=== PATIENT | female | born 1975 | race Asian ===

== ENCOUNTER 2017-03-16 08:45 | Emergency (ER) | payer OTHER ==
[2017-03-16 08:55] VITALS: BP 127/88; PULSE 69; TEMP 97.8; BMI 20.9
--- NOTE | 2017-03-16 09:04 | PDOC ---
Post Exposure HPI - General Chief Complaint: Blood/Body Fluid Exposure SJR Stated Complaint: EMPLOYEE, EYE PROBLEM Time Seen by Provider: 03/16/17 08:53 History Source: Patient Exam Limitations: No Limitations - History of Present Illness Initial Comments: 03/16/17 08:56 CHIEF COMPLAINT: Blood and body fluid exposure HISTORY OF PRESENT ILLNESS: Patient is a 41-year-old female, employee of [employer] presents emergency department for evaluation after being splashed in the eye with PEG tube drainage. 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 Source Patient: Josias# [id number] Source patient tested for hepatitis and 2012, alexa de jesus CP. Will call attending to test for hepatitis and HIV, no HIV test noted on record. 03/16/17 09:12 Timing: just prior to arrival Past History - Past Medical History Allergies/Adverse Reactions: Allergies No Known Allergies Allergy (Verified 03/16/17 08:47) Home Medications: Ambulatory Orders NK [No Known Home Medication] 03/16/17 General: Yes: no pertinent history - Immunization History Tetanus Status: Unknown - Social History Smoking Status: Never smoked Review of Systems - Review of Systems Constitutional: No: Symptoms Reported HEENTM: No: Symptoms Reported, Eye Pain, Blurred Vision, Tearing All Other Systems: Reviewed and Negative *Physical Exam - Vital Signs Last Vital Signs Temp Pulse Resp BP Pulse Ox 97.8 F 69 18 127/88 100 03/16/17 08:49 03/16/17 08:49 03/16/17 08:49 03/16/17 08:49 03/16/17 08:49 - Physical Exam General Appearance: Yes: Appropriately Dressed. No: Apparent Distress HEENT: positive: OUMAR, Normal ENT Inspection Respiratory/Chest: positive: Lungs Clear Lymphatic: negative: Adenopathy Integumentary: positive: Normal Color, Other (no open areas) Neurologic: positive: Alert Post Exposure - ED Protocol - Exposure Treatment Washing/Decontamination: Saline Source Patient HIV Status:: Unknown Is PEP indicated?: Yes Prophylaxis for HIV discussed?: Yes Prophylaxis given?: No Prophylaxis refused?: Yes Drug(s) Information Sheets given:: Yes Baseline bloods drawn prophylaxis:(use *Exposure-Hosp Emp): Yes Additional Treatment:: DT - Referrals Employee Referred to Employee Health:: Yes Employee Referred to Infectious Disease Specialist:: Jhony Dunn Medical Decision Making - Medical Decision Making 03/16/17 09:35 A/P: Patient post exposure, low risk exposure mainly tube feeding, source patient will be tested for hepatitis and HIV as per and RN covering for patient. Patient is now refusing HIV prophylaxis, medications discussed with patient, she continues to refuse. Will follow-up with [facility] for source patient testing. Tetanus given Will follow up with occupational medicine 03/16/17 09:42 *DC/Admit/Observation/Transfer Diagnosis at time of Disposition: Exposure to blood or body fluid - Discharge Dispostion Disposition: HOME Condition at time of disposition: Good Admit: No - Referrals Referrals: Jhony Dunn MD [Staff Physician] - - Patient Instructions Printed Discharge Instructions: How to Handle Body Fluid Exposure -- Healthcare Worker Additional Instructions: Please follow up with testing if source patient. Please follow up with employee health on Friday. Source J #[id number]. Your tetanus now up to date please notify employee health - Post Discharge Activity Work/School Note: Back to Work
[2017-03-16 09:41] LABS: EOSINOPHIL 0.5 % (0-4.5); MCH 28.1 pg (25.7-33.7); MCHC 32.8 g/dl (32.0-36.0); MEAN CELL VOLUME 85.8 fl (80-96); MEAN PLT VOLUME 7.8 fl (7.5-11.1); NEUTROPHILS 65.9 % (42.8-82.8); PLATELET COUNT 249 K/MM3 (134-434); RDW 15.7 % (11.6-15.6)
[2017-03-16] MEDS ORDERED: DIPHTH,PERTUSS(ACELL),TET 0.5 ML DISP.SYRIN IM ONE (09:41)
[2017-03-16] MEDS: TETANUS AND DIPHTHERIA TOXOID 0.5 ML DISP.SYRIN IM ONE ×2 (09:45→09:47)
[2017-03-16 10:01] LABS: ALBUMIN 4.6 g/dl (3.4-5.0); ANION GAP 7 (8-16); BILIRUBIN,TOTAL 0.6 mg/dL (0.2-1.0); CALCIUM 9.5 mg/dL (8.5-10.1); CHOLESTEROL 197 mg/dL (50-200); CO2 28 mmol/L (21-32); CREATININE 0.7 mg/dL (0.55-1.02); GLUCOSE,RANDOM 95 mg/dL (74-106); LDH 180 U/L (84-246); PHOSPHOROUS 3.7 mg/dL (2.5-4.9); SGOT/AST 16 U/L (15-37); SGPT/ALT 16 U/L (12-78); TOT PROT 7.7 g/dl (6.4-8.2); URIC ACID 3.4 mg/dL (2.6-7.2)
[2017-03-16 10:02] LABS: ALK PHOS 67 U/L (45-117)
[2017-03-16 10:22] LABS: HIV 1 & 2 AB NEGATIVE; HIV 1 AGp24 NEGATIVE
[2017-03-19 00:07] LABS: HEP B SURFACE AB Reactive (.)
== END 2017-03-16 09:49 | disposition home or self-care (01) ==
LOC: JERFT 08:45 → JER 08:45 → JERFT 09:49
PROC: 3E0234Z Introduction of Serum, Toxoid and Vaccine into Muscle, Percutaneous Approach (ICD-10-PCS; principal; 2017-03-16)
DX: Z77.21 Contact with and (suspected) exposure to potentially hazardous body fluids (principal); X58.XXXA Exposure to other specified factors, initial encounter; Y93.F9 Activity, other caregiving; Y92.230 Patient room in hospital as the place of occurrence of the external cause; Y99.0 Civilian activity done for income or pay
CPT/HCPCS: 36415; 80053; 82465; 82977; 83615; 84100; 84478; 84550; 85025; 86704; 86706; 86803; 87340; 87389; 90715; 99282-25

== ENCOUNTER 2018-01-25 19:06 | Emergency (ER) | payer OTHER ==
[2018-01-25 19:12] VITALS: BP 110/55; PULSE 90; TEMP 97.9; BMI 20.9
--- NOTE | 2018-01-25 19:27 | PDOC ---
History of Present Illness - General Chief Complaint: Back Pain Stated Complaint: BACK PAIN Time Seen by Provider: 01/25/18 19:27 History Source: Patient Exam Limitations: No Limitations - History of Present Illness Initial Comments: 01/25/18 19:27 CHIEF COMPLAINT: Lower back pain HISTORY OF PRESENT ILLNESS: 42-year-old female with history of low back pain, herniated disc. When she woke up she coughed, then had sharp pain to lower back. Nonradiating pain, no neurosensory deficits, no bowel or bladder difficulty incontinence or urinary retention, no saddle anesthesia, no footdrop. No history of IVDU or history of cancer. REVIEW OF SYSTEMS: GENERAL: Afebrile, denies any weakness RESPIRATORY: No cough, wheezing, or hemoptysis. CARDIAC: No chest pain or shortness of breath MUSCULOSKELETAL: Pain to generalized lower back. No point tenderness. Pain worse on right than left. SKIN : No erythema, no bruising, no deformity. GI/: Denies any abdominal pain, no urinary difficulty, incontinence or urinary retention. RECTAL: Denies any difficulty this A.m. NEUROLOGICAL: Denies any numbness or tingling. No neurosensory deficits. PHYSICAL EXAM: GENERAL: The patient is awake, alert, and fully oriented, in no acute distress. RESPIRATORY: Lungs clear bilaterally, no rhonchi wheezes or crackles CARDIAC: S1-S2 audible, no murmur rub or gallop MUSCULOSKELETAL: Pain to generalized lower back, nonradiating, no tingling or sensory deficit. Less than 2 second cap refill, +4 popliteal and pedal pulses. GI/: Abdomen soft, nontender, nondistended. No rebound tenderness. No masses palpable. MUSCULOSKELETAL: No spinal point tenderness. Normal reflexive and no deficits to sensation or strength. No pain with straight leg raise. RECTAL: Deferred patient with no neurological findings SKIN: Warm, Dry, normal turgor, no erythema, no edema no bruising. Past History - Past Medical History Allergies/Adverse Reactions: Allergies Allergy/AdvReac Type Severity Reaction Status Date / Time No Known Allergies Allergy Verified 03/16/17 08:47 Home Medications: Ambulatory Orders Cyclobenzaprine HCl [Flexeril 10 mg] 10 mg PO BID PRN #20 tablet 01/25/18 Methylprednisolone [Medrol Dose Anish] 4 mg PO ASDIR #21 tablet 01/25/18 COPD: No - Suicide/Smoking/Psychosocial Hx Smoking History: Never smoked Have you smoked in the past 12 months: No Information on smoking cessation initiated: No Hx Alcohol Use: No Drug/Substance Use Hx: No Substance Use Type: None *Physical Exam - Vital Signs Last Vital Signs Temp Pulse Resp BP Pulse Ox 97.9 F 90 18 110/55 100 01/25/18 19:09 01/25/18 19:09 01/25/18 19:09 01/25/18 19:09 01/25/18 19:09 Medical Decision Making - Medical Decision Making 01/25/18 19:43 A/P: Patient with lower back pain, nonradiating, history of herniated disc patient reports pain started suddenly after coughing, described as stabbing. Now patient reports feeling of "stiffness". Will give Toradol 60 mg IM then reevaluate. 01/25/18 20:11 Patient reports some relief will DC patient on Flexeril and Medrol Dosepak follow-up with orthopedics *DC/Admit/Observation/Transfer Diagnosis at time of Disposition: Low back pain Qualifiers: Chronicity: acute Back pain laterality: bilateral Sciatica presence: without sciatica Qualified Code(s): M54.5 - Low back pain - Discharge Dispostion Disposition: HOME Condition at time of disposition: Stable Admit: No - Prescriptions Prescriptions: Cyclobenzaprine HCl [Flexeril 10 mg] 10 mg PO BID PRN #20 tablet PRN Reason: Pain Methylprednisolone [Medrol Dose Anish] 4 mg PO ASDIR #21 tablet - Referrals Referrals: Sawyer Pelletier MD [Staff Physician] - - Patient Instructions Printed Discharge Instructions: DI for Low Back Pain Additional Instructions: 1. Please return to the emergency department with any numbness, tingling, weakness, numbness or tingling to groin or legs, or loss of bowel or bladder function. 2. Use pain medication as ordered. 3. Please is to followup in the office of Dr. Pelletier for evaluation within a week if no improvement. 4. Ice to lower back 5. Refrain from lifting anything above 10 pounds, until pain resolved. - Post Discharge Activity Forms/Work/School Notes: Back to Work
[2018-01-25] MEDS ORDERED: KETOROLAC TROMETHAMINE 60 MG/2 ML VIAL IM ONE (19:40)
[2018-01-25] MEDS ORDERED: KETOROLAC TROMETHAMINE 60 MG/2 ML VIAL ONE (19:42)
== END 2018-01-25 20:30 | disposition home or self-care (01) ==
LOC: JERFT 19:06
PROC: 3E0233Z Introduction of Anti-inflammatory into Muscle, Percutaneous Approach (ICD-10-PCS; principal; 2018-01-25)
DX: M54.5 Low back pain (principal); Z87.39 Personal history of other diseases of the musculoskeletal system and connective tissue
CPT/HCPCS: 99281-25

== ENCOUNTER 2023-08-08 04:48 | Day surgery (SDC) | payer BC ==
[2023-08-01 12:14] VITALS: BMI 22.6
[2023-08-08 07:37] VITALS: TEMP 98.6
[2023-08-08] MEDS ORDERED: KETAMINE HCL 200 MG/20 ML VIAL ONE (08:26)
[2023-08-08] MEDS ORDERED: LIDOCAINE VISCOUS 2% ORAL/TOP 15 ML UNIT-DOSE CUP ONE (08:27)
[2023-08-08] MEDS ORDERED: LIDOCAINE VISCOUS 2% ORAL/TOP 15 ML UNIT-DOSE CUP MM ONE (08:42)
[2023-08-08 10:23] VITALS: BP 135/77; PULSE 60; RESP 12
== END 2023-08-08 12:15 | disposition home or self-care (01) ==
LOC: JASU-ENDO 04:48
PROVIDERS: ATTEND Student in an Organized Health Care Education/Training Program
PROC: 0DBH8ZX Excision of Cecum, Via Natural or Artificial Opening Endoscopic, Diagnostic (ICD-10-PCS; 2023-08-08)
PROC: 0DB48ZX Excision of Esophagogastric Junction, Via Natural or Artificial Opening Endoscopic, Diagnostic (ICD-10-PCS; 2023-08-08)
PROC: 0DB78ZX Excision of Stomach, Pylorus, Via Natural or Artificial Opening Endoscopic, Diagnostic (ICD-10-PCS; 2023-08-08)
PROC: 0DB68ZX Excision of Stomach, Via Natural or Artificial Opening Endoscopic, Diagnostic (ICD-10-PCS; 2023-08-08)
PROC: 0DBK8ZX Excision of Ascending Colon, Via Natural or Artificial Opening Endoscopic, Diagnostic (ICD-10-PCS; principal; 2023-08-08 08:45)
DX: Z12.11 Encounter for screening for malignant neoplasm of colon (principal); D12.2 Benign neoplasm of ascending colon; D12.0 Benign neoplasm of cecum; K63.89 Other specified diseases of intestine; K29.50 Unspecified chronic gastritis without bleeding
CPT/HCPCS: 81025; 88305-TC; 88342-TC